=== PATIENT | male | born 1955 | race Caucasian/White ===

== ENCOUNTER 2020-07-10 19:00 | Outpatient (CLI) | payer MEDICARE, OTHER | END 2020-07-10 19:01 | disposition home or self-care (01) | LOC: SLEEPLAB 19:00 | PROVIDERS: ATTEND Family Medicine | DX: G47.33 Obstructive sleep apnea (adult) (pediatric) (principal); R53.83 Other fatigue; R06.83 Snoring; I10 Essential (primary) hypertension | CPT/HCPCS: 95810 ==

== ENCOUNTER 2020-07-20 19:00 | Outpatient (CLI) | payer MEDICARE, OTHER | END 2020-07-20 19:01 | disposition home or self-care (01) | LOC: SLEEPLAB 19:00 | PROVIDERS: ATTEND Family Medicine | DX: G47.33 Obstructive sleep apnea (adult) (pediatric) (principal); R53.83 Other fatigue; R06.83 Snoring | CPT/HCPCS: 95811 ==

== ENCOUNTER 2021-09-02 14:39 | Outpatient (CLI) | payer MEDICARE, OTHER ==
[2021-09-02 15:59] LABS: #Basophils 0.1 10x3/uL (0.0-0.2); #Eosinphils 0.1 10x3/uL (0.0-0.5); #Monocytes 1.1 10x3/uL (0.0-1.1); #Neutrophils 9.7 10x3/uL (1.5-8.4); %Basophils 0.6 % (0.0-2.0); %Eosinophils 1.1 % (0.0-6.0); %Lymphocytes 11.9 % (18.0-47.0); %Monocytes 8.5 % (0.0-10.0); %Neutrophils 77.3 % (40.0-75.0); Hemoglobin 14.5 g/dL (13.5-17.5); Mean Corpuscular HGB CONC 33.7 g/dL (32.0-36.0); Mean Corpuscular Volume 92.1 fl (81.2-95.1); Mean Platelet Volume 9.5 fl (7.4-10.4); Platelet Count 239 10x3/uL (150-450); RBC Distribution Width 13.2 % (11.5-14.5); Red Blood Cell (RBC) Count 4.67 10x6/uL (4.32-5.72); White Blood Cell (WBC) Count 12.6 10x3/uL (3.5-10.5)
[2021-09-02 16:37] LABS: Anion Gap 16 mmol/L (10-20); BUN (Urea Nitrogen) 17 mg/dL (8.4-25.7); Calc. Creatinine Clearance 0 mL/min (70-130); Calcium 9.7 mg/dL (7.8-10.44); Carbon Dioxide 24 mmol/L (23-31); Chloride 101 mmol/L (98-107); Glucose 95 mg/dL (80-115); Potassium 3.7 mmol/L (3.5-5.1); Sodium 137 mmol/L (136-145)
[2021-09-02 23:17] LABS: SARS-CoV-2 PCR by NAA Not Detected (NotDetected)
== END 2021-09-02 14:40 | disposition home or self-care (01) ==
LOC: LABBT 14:39
PROVIDERS: ATTEND Surgery
DX: Z01.818 Encounter for other preprocedural examination (principal); Z20.822 Contact with and (suspected) exposure to COVID-19
CPT/HCPCS: 80048; 85025; 93005; U0003; U0005; 93010

== ENCOUNTER 2021-09-03 09:05 | Day surgery (SDC) | payer MEDICARE, OTHER ==
[2021-09-02 15:39] VITALS: BMI 27.8
[2021-09-03] MEDS ORDERED: Bupivacaine 0.25% 10 ML VIAL ONE (10:03)
[2021-09-03] MEDS ORDERED: Lidocaine 1% w/Epinephrine 1:100K 20 ML VIAL ONE (10:03)
[2021-09-03] MEDS ORDERED: Fentanyl 250 MCG/5 ML VIAL ONE (10:24)
[2021-09-03] MEDS ORDERED: Midazolam HCl 2 mg/2 ml Vial ONE (10:24)
[2021-09-03] MEDS ORDERED: ceFAZolin (BATCH) 2 GM/100 ML BAG ONE (10:28)
[2021-09-03] MEDS ORDERED: Glycopyrrolate 0.2 MG/ML 5 ML SYRINGE ONE (10:38)
[2021-09-03] MEDS ORDERED: Lidocaine 1% PF 5 ML VIAL ONE (10:38)
[2021-09-03] MEDS ORDERED: Rocuronium Bromide 10 MG/ML (10ML VIAL) ONE (10:38)
[2021-09-03] MEDS ORDERED: Dexamethasone 20 MG/5 ML VIAL ONE (10:38)
[2021-09-03] MEDS ORDERED: Ondansetron PF 4 MG/2 ML Vial ONE (10:38)
[2021-09-03] MEDS ORDERED: PROPOFOL 200 MG/20 ML VIAL ONE (10:38)
[2021-09-03] MEDS ORDERED: ePHEDrine 50 MG/ML VIAL ONE (10:38)
== END 2021-09-03 14:45 | disposition home or self-care (01) ==
LOC: SDC 09:05
PROVIDERS: ATTEND Surgery
PROC: 0YUA4JZ Supplement Bilateral Inguinal Region with Synthetic Substitute, Percutaneous Endoscopic Approach (ICD-10-PCS; principal; 2021-09-03)
PROC: 8E0W4CZ Robotic Assisted Procedure of Trunk Region, Percutaneous Endoscopic Approach (ICD-10-PCS; 2021-09-03)
DX: K40.30 Unilateral inguinal hernia, with obstruction, without gangrene, not specified as recurrent (principal); K40.90 Unilateral inguinal hernia, without obstruction or gangrene, not specified as recurrent; E89.0 Postprocedural hypothyroidism; I10 Essential (primary) hypertension; E78.5 Hyperlipidemia, unspecified; G47.30 Sleep apnea, unspecified; F17.210 Nicotine dependence, cigarettes, uncomplicated; M10.9 Gout, unspecified; N52.9 Male erectile dysfunction, unspecified; Z79.82 Long term (current) use of aspirin; Z79.899 Other long term (current) drug therapy
CPT/HCPCS: 49650; C1781; J0690; J1100; J2250; J2405; J2704; J3010; J3490; S0020

== ENCOUNTER 2021-10-26 12:33 | Outpatient (CLI) | payer MEDICARE, OTHER ==
[~2021-10-26 12:33] MED LIST: ISOVUE-370 76%-LOCM 1 ML ONE
== END 2021-10-26 12:34 | disposition home or self-care (01) ==
LOC: BICCT 12:33
PROVIDERS: ATTEND Surgery
DX: R10.30 Lower abdominal pain, unspecified (principal); K76.9 Liver disease, unspecified; K65.1 Peritoneal abscess
CPT/HCPCS: 74177

== ENCOUNTER 2021-10-26 16:55 | Outpatient (CLI) | payer MEDICARE, OTHER ==
[2021-10-26 23:38] LABS: SARS-CoV-2 NAA Rapid Test Not Detected (NotDetected)
== END 2021-10-26 16:56 | disposition home or self-care (01) ==
LOC: LABBT 16:55
PROVIDERS: ATTEND Surgery
DX: L02.214 Cutaneous abscess of groin (principal); Z20.822 Contact with and (suspected) exposure to COVID-19
CPT/HCPCS: 74177; U0002; Q9966

== ENCOUNTER 2021-10-27 11:39 | Inpatient (IN) | payer MEDICARE, OTHER ==
[2021-10-27] MEDS ORDERED: fentaNYL Citrate/PF 100 MCG/2 ML SYRINGE ONE (14:08)
[2021-10-27] MEDS ORDERED: Bupivacaine 0.25% HCL 30 ML VIAL ONE (14:09)
[2021-10-27] MEDS ORDERED: Lidocaine 1% w/Epinephrine 1:100K 20 ML VIAL ONE (14:09)
[2021-10-27] MEDS ORDERED: CEFAZOLIN 2 GM VIAL ONE (14:14)
[2021-10-27] MEDS ORDERED: Sodium Chloride 0.9% 100 ML ONE (14:14)
[2021-10-27] MEDS ORDERED: SUGAMMADEX SODIUM 200 MG/2 ML VIAL ONE (14:38)
[2021-10-27] MEDS ORDERED: Meperidine HCl/PF 25 MG/ML VIAL ONE (15:10)
[2021-10-27] MEDS ORDERED: Fentanyl 100 MCG/2 ML VIAL ONE ×2 (15:13→15:44)
[2021-10-27] MEDS ORDERED: Dextrose 50% Abboject 50 ML SYRINGE SLOW IVP PRN (16:49)
[2021-10-27] MEDS ORDERED: Promethazine HCl 25 MG/ML VIAL IM PRN (16:49)
[2021-10-27] MEDS ORDERED: Dextrose 5% in Water 1,000 ML IV PRN (16:49)
[2021-10-27] MEDS ORDERED: Indomethacin 75 mg SR Capsule PO PRN (16:49)
[2021-10-27] MEDS ORDERED: Ondansetron PF 4 MG/2 ML Vial IVP PRN (16:49)
[2021-10-27] MEDS ORDERED: HYDROcodone/Acetaminophen 7.5/325 mg Tablet PO PRN ×2 (16:49)
[2021-10-27] MEDS ORDERED: traMADol HCl 50 MG TAB PO PRN (16:49)
[2021-10-27] MEDS ORDERED: Morphine 4 MG/ML VIAL SLOW IVP PRN (16:49)
[2021-10-27] MEDS ORDERED: Colchicine 0.6 MG TAB PO PRN (16:49)
[2021-10-27] MEDS ORDERED: hydrALAZINE 20 MG/ML VIAL SLOW IVP PRN (16:49)
[2021-10-27 16:51] VITALS: BMI 26.2
[2021-10-27] MEDS: traMADol HCl 50 MG TAB PO PRN ×2 (17:15→22:15)
[2021-10-27] MEDS: Amoxicillin/Potassium Clav 875 MG TAB PO SCH (20:20)
[2021-10-27] MEDS: Famotidine 20 MG TAB PO SCH (20:20)
[2021-10-27] MEDS: Famotidine/PF 20 mg/2ml Vial SLOW IVP SCH (20:21)
[2021-10-27] MEDS: D5 1/2 NS w/20 mEq KCL 1,000 ML IV SCH (20:24)
[2021-10-28] MEDS: traMADol HCl 50 MG TAB PO PRN (04:09)
[2021-10-28] MEDS: Lisinopril 20 MG TAB PO SCH (08:38)
[2021-10-28] MEDS: Calcium Carbonate 600 MG TAB PO SCH (08:38)
[2021-10-28] MEDS: Cholecalciferol 1,000 UNITS (25 MCG) TAB PO SCH (08:38)
[2021-10-28] MEDS: Amoxicillin/Potassium Clav 875 MG TAB PO SCH ×2 (08:39→20:26)
[2021-10-28] MEDS: Allopurinol 100 MG TAB PO SCH (08:39)
[2021-10-28] MEDS: Ascorbic Acid 500 mg Chewable Tablet PO SCH (08:39)
[2021-10-28] MEDS: Cyanocobalamin (Vitamin B-12) 1,000 MCG TAB PO SCH (08:39)
[2021-10-28] MEDS: Famotidine 20 MG TAB PO SCH ×2 (08:39→20:26)
[2021-10-28] MEDS: Famotidine/PF 20 mg/2ml Vial SLOW IVP SCH ×2 (08:40→20:27)
[2021-10-28] MEDS: Chlorthalidone 25 MG TAB PO SCH (08:53)
[2021-10-28] MEDS ORDERED: Docusate 100 MG CAP PO PRN (14:40)
[2021-10-28] MEDS ORDERED: Polyethylene Glycol 3350 17 GM Packet PO PRN (14:40)
[2021-10-29] MEDS: D5 1/2 NS w/20 mEq KCL 1,000 ML IV SCH (04:58)
[2021-10-29 08:01] VITALS: TEMP 97.9
[2021-10-29] MEDS ORDERED: Sulfameth/Trimethoprim DS 800-160mg TAB PO SCH (09:00)
[2021-10-29] MEDS: Chlorthalidone 25 MG TAB PO SCH (09:40)
[2021-10-29] MEDS: Ascorbic Acid 500 mg Chewable Tablet PO SCH (09:40)
[2021-10-29] MEDS: Famotidine 20 MG TAB PO SCH (09:41)
[2021-10-29] MEDS: Cyanocobalamin (Vitamin B-12) 1,000 MCG TAB PO SCH (09:41)
[2021-10-29] MEDS: Lisinopril 20 MG TAB PO SCH (09:41)
[2021-10-29] MEDS: Allopurinol 100 MG TAB PO SCH (09:41)
[2021-10-29] MEDS: Calcium Carbonate 600 MG TAB PO SCH (09:41)
[2021-10-29] MEDS: Famotidine/PF 20 mg/2ml Vial SLOW IVP SCH (09:42)
[2021-10-29] MEDS: Cholecalciferol 1,000 UNITS (25 MCG) TAB PO SCH (09:42)
[2021-10-29 09:48] VITALS: BP 140/83
== END 2021-10-29 17:55 | disposition home or self-care (01) | DRG 863 ==
LOC: SDC 11:39 → T4-B 16:35
PROVIDERS: ADMIT Surgery; ATTEND Surgery
PROC: 0J9C0ZZ Drainage of Pelvic Region Subcutaneous Tissue and Fascia, Open Approach (ICD-10-PCS; principal; 2021-10-27)
DX: T81.40XA Infection following a procedure, unspecified, initial encounter (principal); L02.214 Cutaneous abscess of groin; Z20.822 Contact with and (suspected) exposure to COVID-19; I10 Essential (primary) hypertension; E78.5 Hyperlipidemia, unspecified; M10.9 Gout, unspecified; F17.210 Nicotine dependence, cigarettes, uncomplicated; Y83.8 Other surgical procedures as the cause of abnormal reaction of the patient, or of later complication, without mention of misadventure at the time of the procedure; Z88.1 Allergy status to other antibiotic agents; Z79.899 Other long term (current) drug therapy
CPT/HCPCS: 36416; 74177; J0690; J2175; J3010; J3480; J3490; Q9966; S0020; U0002

== ENCOUNTER 2022-01-26 09:56 | Outpatient (CLI) | payer MEDICARE, OTHER ==
[~2022-01-26 09:56] MED LIST changes: -ISOVUE-370 76%-LOCM 1 ML ONE; +Iopamidol 370 76% 100 ML VIAL ONE
== END 2022-01-26 09:57 | disposition home or self-care (01) ==
LOC: BICCT 09:56
PROVIDERS: ATTEND Surgery
DX: T81.49XA Infection following a procedure, other surgical site, initial encounter (principal); L02.214 Cutaneous abscess of groin
CPT/HCPCS: 72193; 82565

== ENCOUNTER 2022-05-13 10:36 | Outpatient (CLI) | payer MEDICARE, OTHER | END 2022-05-13 10:37 | disposition home or self-care (01) | LOC: BICCT 10:36 | PROVIDERS: ATTEND Surgery | DX: T81.49XA Infection following a procedure, other surgical site, initial encounter (principal) | CPT/HCPCS: 72193; 82565 ==

== ENCOUNTER 2022-06-02 09:31 | Day surgery (SDC) | payer MEDICARE, OTHER ==
[2022-05-31 14:59] VITALS: BMI 27.5
[2022-06-02] MEDS ORDERED: Lidocaine 1% MPF 2 ML VIAL ONE (10:47)
[2022-06-02] MEDS ORDERED: Sodium Chloride 0.9% 100 ML ONE (10:47)
[2022-06-02] MEDS ORDERED: CEFAZOLIN 2 GM VIAL ONE (10:47)
[2022-06-02] MEDS ORDERED: Bupivacaine/Epinephrine 0.25% 30 ML VIAL ONE (12:02)
[2022-06-02] MEDS ORDERED: Midazolam HCl 2 mg/2 ml Vial ONE (12:51)
[2022-06-02] MEDS ORDERED: Rocuronium Bromide 10 MG/ML (10ML VIAL) ONE (13:08)
[2022-06-02] MEDS ORDERED: Dexamethasone 20 MG/5 ML VIAL ONE (13:08)
[2022-06-02] MEDS ORDERED: Lidocaine 1% PF 5 ML VIAL ONE (13:08)
[2022-06-02] MEDS ORDERED: Ondansetron PF 4 MG/2 ML Vial ONE (13:08)
[2022-06-02] MEDS ORDERED: ePHEDrine 50 MG/ML VIAL ONE (13:08)
[2022-06-02] MEDS ORDERED: PROPOFOL 200 MG/20 ML VIAL ONE (13:08)
[2022-06-02] MEDS ORDERED: Fentanyl 250 MCG/5 ML VIAL ONE (13:43)
[2022-06-02] MEDS ORDERED: SUGAMMADEX SODIUM 200 MG/2 ML VIAL ONE (15:59)
[2022-06-02] MEDS ORDERED: fentaNYL PF 100 MCG/2 ML SYRINGE ONE (16:40)
[2022-06-02] MEDS ORDERED: traMADol HCl 50 MG TAB ONE (18:08)
== END 2022-06-02 18:39 | disposition home or self-care (01) ==
LOC: SDC 09:31
PROVIDERS: ATTEND Surgery
PROC: 0WPF4JZ Removal of Synthetic Substitute from Abdominal Wall, Percutaneous Endoscopic Approach (ICD-10-PCS; principal; 2022-06-02)
PROC: 0WQF4ZZ Repair Abdominal Wall, Percutaneous Endoscopic Approach (ICD-10-PCS; 2022-06-02)
PROC: 8E0W4CZ Robotic Assisted Procedure of Trunk Region, Percutaneous Endoscopic Approach (ICD-10-PCS; 2022-06-02)
DX: K43.2 Incisional hernia without obstruction or gangrene (principal); T85.79XA Infection and inflammatory reaction due to other internal prosthetic devices, implants and grafts, initial encounter; K66.0 Peritoneal adhesions (postprocedural) (postinfection); I10 Essential (primary) hypertension; E78.5 Hyperlipidemia, unspecified; N52.9 Male erectile dysfunction, unspecified; M10.9 Gout, unspecified; G47.33 Obstructive sleep apnea (adult) (pediatric); E89.2 Postprocedural hypoparathyroidism; F17.210 Nicotine dependence, cigarettes, uncomplicated; Z79.2 Long term (current) use of antibiotics; Z79.82 Long term (current) use of aspirin; Z79.899 Other long term (current) drug therapy; Z88.1 Allergy status to other antibiotic agents; Y81.3 Surgical instruments, materials and general- and plastic-surgery devices (including sutures) associated with adverse incidents
CPT/HCPCS: J1100; J2250; J2405; J2704; J3010; J3490

== ENCOUNTER 2022-08-01 07:42 | Outpatient (CLI) | payer MEDICARE, OTHER ==
[2022-08-01] MEDS ORDERED: Iopamidol 370 76% 100 ML VIAL ONE (09:20)
== END 2022-08-01 07:43 | disposition home or self-care (01) ==
LOC: BICCT 07:42
PROVIDERS: ATTEND Surgery
DX: K63.2 Fistula of intestine (principal)
CPT/HCPCS: 74177; 82565

== ENCOUNTER 2022-08-23 08:30 | Inpatient (IN) | payer MEDICARE, OTHER ==
[2022-08-26 15:48] VITALS: BMI 27.8
[2022-08-30] MEDS ORDERED: Bupivacaine PF 0.5% 30 ML VIAL ONE (08:31)
[2022-08-30] MEDS ORDERED: Midazolam HCl 2 mg/2 ml Vial ONE (08:31)
[2022-08-30] MEDS ORDERED: fentaNYL 50 mcg/mL 1 mL Vial ONE ×5 (08:31→17:25)
[2022-08-30] MEDS ORDERED: Dexamethasone 20 MG/5 ML VIAL ONE (10:22)
[2022-08-30] MEDS ORDERED: ePHEDrine Sulfate 50 MG/10 ML VIAL ONE (10:22)
[2022-08-30] MEDS ORDERED: Rocuronium Bromide 10 MG/ML (10ML VIAL) ONE (10:22)
[2022-08-30] MEDS ORDERED: Ketorolac Tromethamine 30 MG/ML VIAL ONE (10:22)
[2022-08-30] MEDS ORDERED: PROPOFOL 200 MG/20 ML VIAL ONE (10:22)
[2022-08-30] MEDS ORDERED: Bupivacaine HCl 0.5%/Epinephrine 1:200,000/PF 30 ml Vial ONE (10:22)
[2022-08-30] MEDS ORDERED: Lidocaine 1% PF 5 ML VIAL ONE (10:22)
[2022-08-30] MEDS ORDERED: Fentanyl 250 MCG/5 ML VIAL ONE (11:20)
[2022-08-30] MEDS ORDERED: Sodium Chloride 0.9% 100 ML ONE (11:27)
[2022-08-30] MEDS ORDERED: cefOXitin 2 GM VIAL ONE ×2 (11:27→13:58)
[2022-08-30] MEDS ORDERED: Rocuronium Bromide 50 MG/5 ML VIAL ONE (13:42)
[2022-08-30] MEDS ORDERED: SUGAMMADEX SODIUM 200 MG/2 ML VIAL ONE (14:32)
[2022-08-30] MEDS ORDERED: HYDROmorphone 2 MG/ML VIAL SLOW IVP PRN (15:40)
[2022-08-30] MEDS ORDERED: Ondansetron HCl/PF 4 MG/2 ML Vial IVP PRN ×2 (15:40→17:08)
[2022-08-30] MEDS ORDERED: hydrALAZINE 20 MG/ML VIAL SLOW IVP PRN (15:45)
[2022-08-30] MEDS ORDERED: Fentanyl 100 MCG/2 ML VIAL SLOW IVP PRN (15:45)
[2022-08-30] MEDS ORDERED: Promethazine HCl 25 MG/ML VIAL IM PRN (15:45)
[2022-08-30] MEDS ORDERED: Ondansetron PF 4 MG/2 ML Vial IVP PRN (15:45)
[2022-08-30] MEDS ORDERED: Ipratropium/Albuterol 3 ML NEB NEB PRN (15:45)
[2022-08-30] MEDS ORDERED: HYDROmorphone 0.5 MG/0.5 ML SYRINGE ONE (16:37)
[2022-08-30] MEDS ORDERED: hydrALAZINE 20 MG/ML VIAL ONE (17:25)
[2022-08-30] MEDS ORDERED: cefOXitin 2 GM in Sodium Chloride 0.9% 100 ML IVPB SCH (18:00)
[2022-08-30] MEDS: D5 1/2 NS w/20 mEq KCL 1,000 ML IV SCH (20:47)
[2022-08-30] MEDS: fentaNYL 50 mcg/mL 1 mL Vial SLOW IVP PRN (20:47)
[2022-08-30] MEDS: Famotidine 20 MG TAB PO SCH (20:56)
[2022-08-30] MEDS: Famotidine/PF 20 mg/2ml Vial SLOW IVP SCH (22:37)
[2022-08-30] MEDS: cefOXitin 2 GM in Sodium Chloride 0.9% 100 ML IVPB SCH (22:37)
[2022-08-31] MEDS: D5 1/2 NS w/20 mEq KCL 1,000 ML IV SCH ×3 (01:28→20:47)
[2022-08-31] MEDS: fentaNYL 50 mcg/mL 1 mL Vial SLOW IVP PRN ×3 (02:55→22:51)
[2022-08-31] MEDS ORDERED: traMADol HCl 50 MG TAB PO PRN (02:57)
[2022-08-31] MEDS: cefOXitin 2 GM in Sodium Chloride 0.9% 100 ML IVPB SCH (05:21)
[2022-08-31 05:50] LABS: #Lymphocytes 1.1 thou/uL (1.20-3.40); #Neutrophils 6.6 thou/uL (1.40-6.50); %Basophils 0.2 % (0.0-1.0); %Eosinophils 0.2 % (0.0-10.0); %Lymphocytes 12.7 % (21.0-51.0); %Monocytes 11.5 % (0.0-10.0); %Neutrophils 75.3 % (42.0-75.0); Hemoglobin 11.9 g/dL (14.0-18.0); Mean Corpuscular HGB CONC 33.2 g/dL (32.0-36.0); Mean Corpuscular Hemoglobin 31.3 pg (27.0-31.0); Mean Corpuscular Volume 94.3 fl (78.0-98.0); Mean Platelet Volume 6.8 fL (7.4-10.4); Platelet Count 280 10x3/uL (130-400); Red Blood Cell (RBC) Count 3.79 mill/uL (4.70-6.10); White Blood Cell (WBC) Count 8.7 10x3/uL (4.8-10.8)
[2022-08-31 06:11] LABS: Anion Gap 12 mmol/L (10-20); BUN (Urea Nitrogen) 21 mg/dL (8.4-25.7); Calc. Creatinine Clearance 73 mL/min (70-130); Calcium 8.9 mg/dL (7.8-10.44); Carbon Dioxide 21 mmol/L (23-31); Chloride 107 mmol/L (98-107); Estimated GFR 63; Glucose 116 mg/dL (80-115); Sodium 136 mmol/L (136-145)
[2022-08-31] MEDS: Lisinopril 20 MG TAB PO SCH (08:35)
[2022-08-31] MEDS: Famotidine 20 MG TAB PO SCH ×2 (08:35→20:45)
[2022-08-31] MEDS: Famotidine/PF 20 mg/2ml Vial SLOW IVP SCH ×2 (08:36→20:47)
[2022-08-31] MEDS: Chlorthalidone 25 MG TAB PO SCH (09:52)
[2022-08-31] MEDS ORDERED: Lidocaine 4% Topical Sol 50 ML BOT TOP SCH (12:00)
[2022-08-31] MEDS: traMADol HCl 50 MG TAB PO PRN (14:42)
[2022-08-31] MEDS ORDERED: HYDROcodone/Acetaminophen 7.5/325 mg Tablet PO PRN (15:33)
[2022-09-01] MEDS: traMADol HCl 50 MG TAB PO PRN ×3 (03:39→21:27)
[2022-09-01] MEDS: Acetaminophen 325 MG TAB PO PRN ×3 (06:12→21:26)
[2022-09-01] MEDS: Famotidine/PF 20 mg/2ml Vial SLOW IVP SCH ×2 (09:13→19:42)
[2022-09-01] MEDS: Famotidine 20 MG TAB PO SCH ×2 (09:13→19:43)
[2022-09-01] MEDS: Lisinopril 20 MG TAB PO SCH (09:13)
[2022-09-01] MEDS: Chlorthalidone 25 MG TAB PO SCH (09:15)
[2022-09-02] MEDS: traMADol HCl 50 MG TAB PO PRN ×2 (05:15→11:19)
[2022-09-02] MEDS: Acetaminophen 325 MG TAB PO PRN (05:15)
[2022-09-02 08:12] VITALS: TEMP 97.9
[2022-09-02] MEDS ORDERED: Milk Of Magnesia 30 ML UDCUP PO ONE (08:38)
[2022-09-02] MEDS: Chlorthalidone 25 MG TAB PO SCH (09:19)
[2022-09-02] MEDS: Famotidine 20 MG TAB PO SCH (09:20)
[2022-09-02 09:21] VITALS: BP 157/92
[2022-09-02] MEDS: Lisinopril 20 MG TAB PO SCH (09:21)
[2022-09-02] MEDS: Famotidine/PF 20 mg/2ml Vial SLOW IVP SCH (11:29)
== END 2022-09-02 12:00 | disposition home or self-care (01) | DRG 330 ==
LOC: SURG A 08-30 08:02
PROVIDERS: ADMIT Surgery; ATTEND Surgery
PROC: 0DBG4ZZ Excision of Left Large Intestine, Percutaneous Endoscopic Approach (ICD-10-PCS; principal; 2022-08-30)
DX: K94.09 Other complications of colostomy (principal); K57.32 Diverticulitis of large intestine without perforation or abscess without bleeding; K63.2 Fistula of intestine; I10 Essential (primary) hypertension; E78.5 Hyperlipidemia, unspecified; Y83.8 Other surgical procedures as the cause of abnormal reaction of the patient, or of later complication, without mention of misadventure at the time of the procedure; Z88.1 Allergy status to other antibiotic agents; Z79.899 Other long term (current) drug therapy
CPT/HCPCS: 36415; 36416; 80048; 85025; 88307; 97139; C1713; C1889; J0360; J0694; J1100; J1170; J1650; J1885; J2250; J2704; J3010; J3480; J3490; S0020; S0028

== ENCOUNTER 2022-08-23 09:05 | Outpatient (CLI) | payer MEDICARE, OTHER ==
[2022-08-23 10:14] LABS: #Basophils 0.1 10x3/uL (0.0-0.2); #Eosinphils 0.2 10x3/uL (0.0-0.5); #Monocytes 0.7 10x3/uL (0.0-1.1); #Neutrophils 4.3 10x3/uL (1.5-8.4); %Basophils 1.3 % (0.0-2.0); %Eosinophils 2.5 % (0.0-6.0); %Lymphocytes 22.5 % (18.0-47.0); %Monocytes 10.2 % (0.0-10.0); %Neutrophils 63.2 % (40.0-75.0); Hemoglobin 13.8 g/dL (13.5-17.5); Mean Corpuscular HGB CONC 32.9 g/dL (32.0-36.0); Mean Corpuscular Hemoglobin 29.7 pg (27.0-33.0); Mean Corpuscular Volume 90.3 fl (81.2-95.1); Mean Platelet Volume 9.1 fl (7.4-10.4); Platelet Count 346 10x3/uL (150-450); RBC Distribution Width 14.1 % (11.5-14.5); Red Blood Cell (RBC) Count 4.65 10x6/uL (4.32-5.72); White Blood Cell (WBC) Count 6.8 10x3/uL (3.5-10.5)
[2022-08-23 10:49] LABS: Anion Gap 13 mmol/L (10-20); BUN (Urea Nitrogen) 21 mg/dL (8.4-25.7); Calc. Creatinine Clearance 0 mL/min (70-130); Calcium 10.1 mg/dL (7.8-10.44); Carbon Dioxide 24 mmol/L (23-31); Chloride 104 mmol/L (98-107); Estimated GFR 78; Glucose 92 mg/dL (80-115); Potassium 4.2 mmol/L (3.5-5.1); Sodium 137 mmol/L (136-145)
[2022-08-23 16:02] LABS: Hemoglobin A1c 5.1 % (4.0-6.0)
== END 2022-08-23 09:06 | disposition home or self-care (01) ==
LOC: LABBT 09:05
PROVIDERS: ATTEND Surgery
DX: Z01.818 Encounter for other preprocedural examination (principal); K57.92 Diverticulitis of intestine, part unspecified, without perforation or abscess without bleeding
CPT/HCPCS: 80048; 83036; 85025; 93005; 93010

== ENCOUNTER 2022-09-04 19:03 | Inpatient (IN) | payer MEDICARE, OTHER ==
[2022-09-04] MEDS ORDERED: Ondansetron PF 4 MG/2 ML Vial ONE (19:29)
[2022-09-04 19:42] LABS: Hemoglobin 13.7 g/dL (14.0-18.0); Mean Corpuscular Hemoglobin 32.8 pg (27.0-31.0); Mean Corpuscular Volume 93.5 fl (78.0-98.0); Mean Platelet Volume 6.7 fL (7.4-10.4); Platelet Count 432 10x3/uL (130-400); RBC Distribution Width 13.1 % (11.5-14.5); Red Blood Cell (RBC) Count 4.18 mill/uL (4.70-6.10); White Blood Cell (WBC) Count 11.9 10x3/uL (4.8-10.8)
[2022-09-04 20:01] LABS: Albumin 3.9 g/dL (3.4-4.8)
[2022-09-04 20:02] LABS: Chloride 97 mmol/L (98-107); Potassium 4.1 mmol/L (3.5-5.1); Sodium 138 mmol/L (136-145)
[2022-09-04 20:03] LABS: Calcium 10.6 mg/dL (7.8-10.44); Glucose 116 mg/dL (80-115)
[2022-09-04 20:04] LABS: Globulin 3.4 g/dL (2.4-3.5); Protein, Total 7.3 g/dL (5.8-8.1)
[2022-09-04 20:05] LABS: Bilirubin, Total 0.6 mg/dL (0.2-1.2); Carbon Dioxide 26 mmol/L (23-31)
[2022-09-04 20:06] LABS: Alkaline Phosphatase 62 U/L (40-110)
[2022-09-04 20:07] LABS: Calc. Creatinine Clearance 0 mL/min (70-130); Estimated GFR 66
[2022-09-04 20:08] LABS: BUN (Urea Nitrogen) 31 mg/dL (8.4-25.7)
[2022-09-04 20:09] LABS: ALT (SGPT) 17 U/L (8-55); AST (SGOT) 19 U/L (5-34); Lipase 22 U/L (8-78)
[2022-09-04 20:10] LABS: Anion Gap 20 mmol/L (10-20)
[2022-09-04 20:12] LABS: Band 5 % (5-11); Lymphocytes 7 % (21-51); MDiff Complete? YES; Monocytes 4 % (0-10); Neutrophil 84 % (42-75); Platelet Morphology Comment Appears Increased; RBC Morphology Normal
[2022-09-04] MEDS ORDERED: Sodium Chloride 0.9% 1,000 ML IV SCH (21:30)
[2022-09-04 21:36] VITALS: BMI 27.8
[2022-09-04] MEDS ORDERED: Promethazine HCl 25 MG/ML VIAL IM PRN (22:09)
[2022-09-04] MEDS ORDERED: Dextrose 5% in Water 1,000 ML IV PRN (22:09)
[2022-09-04] MEDS ORDERED: hydrALAZINE 20 MG/ML VIAL SLOW IVP PRN (22:09)
[2022-09-04] MEDS ORDERED: Acetaminophen 325 MG TAB PO PRN (22:09)
[2022-09-04] MEDS ORDERED: Dextrose 50% Abboject 50 ML SYRINGE SLOW IVP PRN (22:09)
[2022-09-04] MEDS ORDERED: Fentanyl 100 MCG/2 ML VIAL SLOW IVP PRN (22:09)
[2022-09-04] MEDS ORDERED: Ipratropium/Albuterol 3 ML NEB NEB PRN (22:09)
[2022-09-04] MEDS ORDERED: traMADol HCl 50 MG TAB PO PRN ×2 (22:09)
[2022-09-04] MEDS: Ondansetron PF 4 MG/2 ML Vial IVP PRN (22:25)
[2022-09-04] MEDS: Sodium Chloride 0.9% 1,000 ML IV SCH (22:27)
[2022-09-04] MEDS ORDERED: Famotidine/PF 20 mg/2ml Vial SLOW IVP SCH (22:30)
[2022-09-04] MEDS ORDERED: Famotidine 20 MG TAB PO SCH (22:30)
[2022-09-05] MEDS: Sodium Chloride 0.9% 1,000 ML IV SCH ×3 (06:03→20:57)
[2022-09-05 06:19] LABS: #Eosinphils 0.1 thou/uL (0.0-0.7); #Lymphocytes 1.5 thou/uL (1.20-3.40); #Monocytes 1.1 thou/uL (0.11-0.59); %Basophils 0.3 % (0.0-1.0); %Eosinophils 0.7 % (0.0-10.0); %Lymphocytes 15.7 % (21.0-51.0); %Monocytes 11.3 % (0.0-10.0); Hemoglobin 12.3 g/dL (14.0-18.0); Mean Corpuscular HGB CONC 34.5 g/dL (32.0-36.0); Mean Corpuscular Hemoglobin 32.1 pg (27.0-31.0); Mean Platelet Volume 6.7 fL (7.4-10.4); Platelet Count 381 10x3/uL (130-400); RBC Distribution Width 13.1 % (11.5-14.5); Red Blood Cell (RBC) Count 3.82 mill/uL (4.70-6.10); White Blood Cell (WBC) Count 9.7 10x3/uL (4.8-10.8)
[2022-09-05 06:45] LABS: Anion Gap 15 mmol/L (10-20); BUN (Urea Nitrogen) 29 mg/dL (8.4-25.7); Calc. Creatinine Clearance 90 mL/min (70-130); Calcium 9.9 mg/dL (7.8-10.44); Carbon Dioxide 28 mmol/L (23-31); Chloride 100 mmol/L (98-107); Estimated GFR 79; Glucose 101 mg/dL (80-115); Potassium 3.4 mmol/L (3.5-5.1); Sodium 140 mmol/L (136-145)
[2022-09-05] MEDS: Ondansetron PF 4 MG/2 ML Vial IVP PRN (07:18)
[2022-09-05] MEDS: Famotidine/PF 20 mg/2ml Vial SLOW IVP SCH ×2 (09:30→20:58)
[2022-09-05] MEDS: Lisinopril 20 MG TAB PO SCH (09:30)
[2022-09-05] MEDS: fentaNYL 50 mcg/mL 1 mL Vial SLOW IVP PRN ×2 (13:40→18:37)
[2022-09-05] MEDS: Famotidine 20 MG TAB PO SCH ×2 (16:09→20:58)
[2022-09-05] MEDS: Ketorolac Tromethamine 30 MG/ML VIAL IVP PRN (18:38)
[2022-09-06] MEDS: fentaNYL 50 mcg/mL 1 mL Vial SLOW IVP PRN ×5 (00:05→18:41)
[2022-09-06] MEDS: Ketorolac Tromethamine 30 MG/ML VIAL IVP PRN ×2 (00:06→21:05)
[2022-09-06] MEDS: Sodium Chloride 0.9% 1,000 ML IV SCH ×3 (05:06→21:05)
[2022-09-06] MEDS ORDERED: Lidocaine 4% Topical Sol 50 ML BOT TOP SCH (09:00)
[2022-09-06] MEDS: Lisinopril 20 MG TAB PO SCH (10:45)
[2022-09-06] MEDS: Famotidine/PF 20 mg/2ml Vial SLOW IVP SCH ×2 (10:45→21:06)
[2022-09-06] MEDS: Famotidine 20 MG TAB PO SCH ×2 (10:46→22:15)
[2022-09-06] MEDS ORDERED: Allopurinol 100 MG TAB PO SCH (11:00)
[2022-09-06] MEDS: Chlorthalidone 25 MG TAB PO SCH ×2 (11:29→11:31)
[2022-09-07] MEDS: Ketorolac Tromethamine 30 MG/ML VIAL IVP PRN ×3 (03:17→22:24)
[2022-09-07] MEDS: Sodium Chloride 0.9% 1,000 ML IV SCH ×2 (03:23→11:27)
[2022-09-07] MEDS: Lisinopril 20 MG TAB PO SCH (08:27)
[2022-09-07] MEDS: Allopurinol 100 MG TAB PO SCH (08:28)
[2022-09-07] MEDS: Chlorthalidone 25 MG TAB PO SCH (08:28)
[2022-09-07] MEDS: Famotidine/PF 20 mg/2ml Vial SLOW IVP SCH ×2 (08:28→21:27)
[2022-09-07] MEDS: Famotidine 20 MG TAB PO SCH ×2 (08:28→20:30)
[2022-09-07] MEDS: fentaNYL 50 mcg/mL 1 mL Vial SLOW IVP PRN (08:32)
[2022-09-07] MEDS ORDERED: Chlorthalidone 25 MG TAB PO SCH (09:00)
[2022-09-07] MEDS: chlorproMAZINE HCl 25 MG TAB PO PRN (13:10)
[2022-09-08] MEDS: Sodium Chloride 0.9% 1,000 ML IV SCH (01:55)
[2022-09-08 06:06] VITALS: TEMP 98.1
[2022-09-08 08:28] VITALS: BP 139/83
[2022-09-08] MEDS: Chlorthalidone 25 MG TAB PO SCH (08:32)
[2022-09-08] MEDS: Lisinopril 20 MG TAB PO SCH (08:33)
[2022-09-08] MEDS: Famotidine/PF 20 mg/2ml Vial SLOW IVP SCH (08:33)
[2022-09-08] MEDS: Famotidine 20 MG TAB PO SCH (08:33)
[2022-09-08] MEDS: Allopurinol 100 MG TAB PO SCH (08:33)
[2022-09-08] MEDS: chlorproMAZINE HCl 25 MG TAB PO PRN (09:24)
== END 2022-09-08 13:00 | disposition home or self-care (01) | DRG 389 ==
LOC: ERS 19:03 → SURG A 19:48 → OBSVTOIN 09-05 17:04
PROVIDERS: ADMIT Surgery; ATTEND Surgery
PROC: 0D9670Z Drainage of Stomach with Drainage Device, Via Natural or Artificial Opening (ICD-10-PCS; principal; 2022-09-05)
DX: K56.7 Ileus, unspecified (principal); K63.2 Fistula of intestine; Z88.8 Allergy status to other drugs, medicaments and biological substances; Z90.49 Acquired absence of other specified parts of digestive tract
CPT/HCPCS: 36415; 74018; 80048; 80053; 83605; 83690; 84484; 85025; 96372; 96374; 96375; 96376; 97139; G0378; J1650; J1885; J2405; J3010; J7050; Q0161; S0028

== ENCOUNTER 2022-10-14 11:09 | Inpatient (IN) | payer MEDICARE, OTHER ==
[2022-10-14] MEDS ORDERED: Sodium Chloride 0.9% 100 ML ONE ×2 (12:32→18:33)
[2022-10-14] MEDS ORDERED: Piperacillin/Tazobactam 3.375 GM VIAL ONE ×2 (12:32→18:33)
[2022-10-14 12:38] LABS: #Monocytes 0.9 thou/uL (0.11-0.59); #Neutrophils 8.8 thou/uL (1.40-6.50); %Basophils 0.4 % (0.0-1.0); %Lymphocytes 3.3 % (21.0-51.0); %Monocytes 8.5 % (0.0-10.0); %Neutrophils 87.3 % (42.0-75.0); Hemoglobin 11.7 g/dL (14.0-18.0); Mean Corpuscular HGB CONC 32.9 g/dL (32.0-36.0); Mean Corpuscular Hemoglobin 29.3 pg (27.0-31.0); Mean Corpuscular Volume 89.2 fl (78.0-98.0); Mean Platelet Volume 8.5 fL (7.4-10.4); Platelet Count 322 10x3/uL (130-400); RBC Distribution Width 15.6 % (11.5-14.5); Red Blood Cell (RBC) Count 3.99 mill/uL (4.70-6.10); White Blood Cell (WBC) Count 10.1 10x3/uL (4.8-10.8)
[2022-10-14 12:59] LABS: Anion Gap 12 mmol/L (10-20); BUN (Urea Nitrogen) 16 mg/dL (8.4-25.7); Calc. Creatinine Clearance 0 mL/min (70-130); Calcium 9.8 mg/dL (7.8-10.44); Carbon Dioxide 22 mmol/L (23-31); Chloride 103 mmol/L (98-107); Estimated GFR 65; Glucose 110 mg/dL (80-115); Potassium 3.7 mmol/L (3.5-5.1); Sodium 133 mmol/L (136-145)
[2022-10-14] MEDS ORDERED: Ketorolac Tromethamine 30 MG/ML VIAL IVP PRN ×2 (13:34→17:21)
[2022-10-14] MEDS ORDERED: Ondansetron HCl/PF 4 MG/2 ML Vial IVP PRN (13:34)
[2022-10-14] MEDS ORDERED: PACU-Morphine 4MG/ML VIAL SLOW IVP PRN (13:34)
[2022-10-14] MEDS ORDERED: Promethazine HCl 25 MG/ML VIAL IM PRN ×2 (13:34→17:21)
[2022-10-14] MEDS ORDERED: Vancomycin 1 GM/200 ML (FROZEN) BAG ONE (14:36)
[2022-10-14] MEDS ORDERED: fentaNYL PF 100 MCG/2 ML SYRINGE ONE ×2 (15:01→16:44)
[2022-10-14] MEDS ORDERED: Rocuronium Bromide 10 MG/ML (10ML VIAL) ONE (15:34)
[2022-10-14] MEDS ORDERED: NEOSTIGMINE 3 MG/3 ML SYR 3 MG/3 ML SYRINGE ONE (15:34)
[2022-10-14] MEDS ORDERED: PROPOFOL 200 MG/20 ML VIAL ONE (15:34)
[2022-10-14] MEDS ORDERED: Lidocaine 1% PF 5 ML VIAL ONE (15:34)
[2022-10-14] MEDS ORDERED: Ondansetron PF 4 MG/2 ML Vial ONE (15:34)
[2022-10-14] MEDS ORDERED: GLYCOPYRROLATE/PF 0.2 MG/ML VIAL ONE (15:34)
[2022-10-14] MEDS ORDERED: Ketorolac Tromethamine 30 MG/ML VIAL ONE (15:34)
[2022-10-14] MEDS ORDERED: Bupivacaine/Epinephrine 0.25% 30 ML VIAL ONE (15:40)
[2022-10-14] MEDS ORDERED: Bupivacaine HCl 0.5%/Epinephrine 1:200,000/PF 30 ml Vial ONE (15:40)
[2022-10-14] MEDS ORDERED: Dextrose 5% in Water 1,000 ML IV PRN (17:21)
[2022-10-14] MEDS ORDERED: Glucagon 1 MG/ML KIT IM PRN (17:21)
[2022-10-14] MEDS ORDERED: hydrALAZINE 20 MG/ML VIAL SLOW IVP PRN (17:21)
[2022-10-14] MEDS ORDERED: HYDROcodone/Acetaminophen 10/325 mg Tablet PO PRN (17:21)
[2022-10-14] MEDS ORDERED: Ondansetron PF 4 MG/2 ML Vial IVP PRN (17:21)
[2022-10-14] MEDS ORDERED: Colchicine 0.6 MG TAB PO PRN (17:21)
[2022-10-14] MEDS ORDERED: traMADol HCl 50 MG TAB PO PRN (17:21)
[2022-10-14] MEDS ORDERED: Dextrose 50% Abboject 50 ML SYRINGE SLOW IVP PRN (17:21)
[2022-10-14] MEDS ORDERED: Ipratropium/Albuterol 3 ML NEB NEB PRN (17:21)
[2022-10-14] MEDS ORDERED: fentaNYL 50 mcg/mL 1 mL Vial SLOW IVP PRN (17:33)
[2022-10-14] MEDS ORDERED: cloNIDine 0.1 MG TAB PO PRN (18:00)
[2022-10-14] MEDS: Sodium Chloride 0.9% 1,000 ML IV SCH (18:20)
[2022-10-14] MEDS: Piperacillin/Tazobactam 3.375 GM in Sodium Chloride 0.9% 100 ML IVPB SCH (18:35)
[2022-10-14] MEDS: Famotidine 20 MG TAB PO SCH (20:22)
[2022-10-14] MEDS: Famotidine/PF 20 mg/2ml Vial SLOW IVP SCH (20:23)
[2022-10-14 20:39] VITALS: BMI 26.9
[2022-10-15] MEDS: Piperacillin/Tazobactam 3.375 GM in Sodium Chloride 0.9% 100 ML IVPB SCH ×3 (02:11→17:38)
[2022-10-15 06:09] LABS: #Neutrophils 6.2 thou/uL (1.40-6.50); %Basophils 0.4 % (0.0-1.0); %Eosinophils 0.2 % (0.0-10.0); %Lymphocytes 12.8 % (21.0-51.0); %Monocytes 11.8 % (0.0-10.0); %Neutrophils 74.1 % (42.0-75.0); Hemoglobin 9.6 g/dL (14.0-18.0); Mean Corpuscular HGB CONC 31.7 g/dL (32.0-36.0); Mean Corpuscular Hemoglobin 29.1 pg (27.0-31.0); Mean Corpuscular Volume 91.8 fl (78.0-98.0); Mean Platelet Volume 8.7 fL (7.4-10.4); Platelet Count 270 10x3/uL (130-400); RBC Distribution Width 15.4 % (11.5-14.5); White Blood Cell (WBC) Count 8.4 10x3/uL (4.8-10.8)
[2022-10-15 06:30] LABS: Anion Gap 11 mmol/L (10-20); BUN (Urea Nitrogen) 21 mg/dL (8.4-25.7); Calc. Creatinine Clearance 64 mL/min (70-130); Calcium 8.4 mg/dL (7.8-10.44); Carbon Dioxide 21 mmol/L (23-31); Chloride 106 mmol/L (98-107); Estimated GFR 57; Glucose 126 mg/dL (80-115); Potassium 4.1 mmol/L (3.5-5.1); Sodium 134 mmol/L (136-145)
[2022-10-15] MEDS: traMADol HCl 50 MG TAB PO PRN ×3 (06:30→20:32)
[2022-10-15] MEDS: Lisinopril 20 MG TAB PO SCH (08:25)
[2022-10-15] MEDS: Allopurinol 100 MG TAB PO SCH (08:25)
[2022-10-15] MEDS: Famotidine 20 MG TAB PO SCH ×2 (08:25→20:32)
[2022-10-15] MEDS: Chlorthalidone 25 MG TAB PO SCH (08:25)
[2022-10-15] MEDS: Famotidine/PF 20 mg/2ml Vial SLOW IVP SCH ×2 (08:27→20:28)
[2022-10-15] MEDS: Sodium Chloride 0.9% 1,000 ML IV SCH (08:27)
[2022-10-15] MEDS: Acetaminophen 325 MG TAB PO PRN ×2 (10:50→17:39)
[2022-10-16] MEDS: Piperacillin/Tazobactam 3.375 GM in Sodium Chloride 0.9% 100 ML IVPB SCH ×3 (01:32→17:39)
[2022-10-16] MEDS: Acetaminophen 325 MG TAB PO PRN ×4 (03:05→19:50)
[2022-10-16] MEDS: Lisinopril 20 MG TAB PO SCH (08:13)
[2022-10-16] MEDS: Allopurinol 100 MG TAB PO SCH (08:13)
[2022-10-16] MEDS: Senokot 8.6 MG TAB PO SCH ×2 (08:13→19:52)
[2022-10-16] MEDS: Famotidine 20 MG TAB PO SCH ×2 (08:13→19:50)
[2022-10-16] MEDS: Famotidine/PF 20 mg/2ml Vial SLOW IVP SCH ×2 (08:14→19:52)
[2022-10-16] MEDS: Chlorthalidone 25 MG TAB PO SCH (08:50)
[2022-10-16] MEDS: traMADol HCl 50 MG TAB PO PRN (21:29)
[2022-10-17] MEDS: Piperacillin/Tazobactam 3.375 GM in Sodium Chloride 0.9% 100 ML IVPB SCH ×3 (02:30→19:59)
[2022-10-17] MEDS: Acetaminophen 325 MG TAB PO PRN (03:53)
[2022-10-17] MEDS: Senokot 8.6 MG TAB PO SCH (09:00)
[2022-10-17] MEDS: Allopurinol 100 MG TAB PO SCH (09:00)
[2022-10-17] MEDS: Lisinopril 20 MG TAB PO SCH (09:00)
[2022-10-17] MEDS: Famotidine 20 MG TAB PO SCH (09:00)
[2022-10-17] MEDS: Chlorthalidone 25 MG TAB PO SCH (10:03)
[2022-10-17] MEDS: Famotidine/PF 20 mg/2ml Vial SLOW IVP SCH (10:04)
[2022-10-17 16:09] VITALS: BP 155/81; TEMP 97.9
== END 2022-10-17 19:34 | disposition home or self-care (01) | DRG 581 ==
LOC: SDC 11:09 → SJJU 17:18
PROVIDERS: ADMIT Surgery; ATTEND Surgery
PROC: 0Y9 Anatomical Regions, Lower Extremities, Drainage (ICD-10-PCS; principal; 2022-10-14)
PROC: 0JPW0JZ Removal of Synthetic Substitute from Lower Extremity Subcutaneous Tissue and Fascia, Open Approach (ICD-10-PCS; 2022-10-14)
DX: L02.214 Cutaneous abscess of groin (principal); I10 Essential (primary) hypertension; M10.9 Gout, unspecified; I73.9 Peripheral vascular disease, unspecified; Z88.1 Allergy status to other antibiotic agents; S31.109D Unspecified open wound of abdominal wall, unspecified quadrant without penetration into peritoneal cavity, subsequent encounter; S81.801D Unspecified open wound, right lower leg, subsequent encounter
CPT/HCPCS: 36415; 74177; 80048; 85025; 93923; 97139; 97607; J1885; J2405; J2543; J2704; J3370-JW; J3490; J7050; Q9967

== ENCOUNTER 2022-10-21 16:08 | Emergency (ER) | payer MEDICARE, OTHER | END 2022-10-21 19:20 | disposition home or self-care (01) | LOC: ERS 16:08 | DX: T85.79XA Infection and inflammatory reaction due to other internal prosthetic devices, implants and grafts, initial encounter (principal); I10 Essential (primary) hypertension; F17.200 Nicotine dependence, unspecified, uncomplicated | CPT/HCPCS: 87070; 87077; 87186; 87205; 99284 ==

== ENCOUNTER 2023-02-17 14:00 | Inpatient (IN) | payer MEDICARE, OTHER ==
[2023-02-17 14:42] VITALS: BMI 27.8
[2023-02-21] MEDS ORDERED: fentaNYL 50 mcg/mL 1 mL Vial ONE ×3 (10:33→15:46)
[2023-02-21] MEDS ORDERED: Midazolam HCl 2 mg/2 ml Vial ONE (10:33)
[2023-02-21] MEDS ORDERED: Bupivacaine PF 0.5% 30 ML VIAL ONE (10:34)
[2023-02-21] MEDS ORDERED: fentaNYL PF 100 MCG/2 ML SYRINGE ONE ×2 (12:31)
[2023-02-21] MEDS ORDERED: cefOXitin 2 GM VIAL ONE (12:39)
[2023-02-21] MEDS ORDERED: Sodium Chloride 0.9% 100 ML ONE (12:39)
[2023-02-21] MEDS ORDERED: Ondansetron PF 4 MG/2 ML Vial ONE (12:58)
[2023-02-21] MEDS ORDERED: PHENYLEPHRINE-NS 100 MCG/ML 10 ML SYRINGE ONE (12:58)
[2023-02-21] MEDS ORDERED: Rocuronium Bromide 10 MG/ML (10ML VIAL) ONE (12:58)
[2023-02-21] MEDS ORDERED: NEOSTIGMINE 3 MG/3 ML SYR 3 MG/3 ML SYRINGE ONE (12:58)
[2023-02-21] MEDS ORDERED: Glycopyrrolate 0.2 MG/ML 5 ML SYRINGE ONE (12:58)
[2023-02-21] MEDS ORDERED: Lidocaine 1% PF 5 ML VIAL ONE (12:58)
[2023-02-21] MEDS ORDERED: PROPOFOL 200 MG/20 ML VIAL ONE (12:58)
[2023-02-21] MEDS ORDERED: Bupivacaine HCl 0.5%/Epinephrine 1:200,000/PF 30 ml Vial ONE (12:58)
[2023-02-21] MEDS ORDERED: Dexamethasone 20 MG/5 ML VIAL ONE (12:58)
[2023-02-21] MEDS ORDERED: ePHEDrine Sulfate 50 MG/10 ML VIAL ONE (12:58)
[2023-02-21] MEDS ORDERED: Ondansetron HCl/PF 4 MG/2 ML Vial IVP PRN (15:09)
[2023-02-21] MEDS ORDERED: Promethazine HCl 25 MG/ML VIAL IM PRN ×2 (15:09→15:52)
[2023-02-21] MEDS ORDERED: hydrALAZINE 20 MG/ML VIAL SLOW IVP PRN (15:52)
[2023-02-21] MEDS ORDERED: Ondansetron PF 4 MG/2 ML Vial IVP PRN ×2 (15:52→16:15)
[2023-02-21] MEDS ORDERED: Ipratropium/Albuterol 3 ML NEB NEB PRN (15:52)
[2023-02-21] MEDS ORDERED: HYDROmorphone 0.5 MG/0.5 ML SYRINGE ONE ×2 (16:06→17:37)
[2023-02-21] MEDS ORDERED: diphenhydrAMINE 50 MG/ML VIAL IM/IV PRN (16:15)
[2023-02-21] MEDS ORDERED: Naloxone HCl 0.4 mg/ml Vial IV PRN (16:15)
[2023-02-21] MEDS ORDERED: diphenhydrAMINE 25 MG CAP PO PRN (16:15)
[2023-02-21] MEDS ORDERED: Morphine Sulfate 100 MG in Dextrose 5% in Water 98 ML IV SCH (16:15)
[2023-02-21] MEDS ORDERED: hydrALAZINE 20 MG/ML VIAL ONE ×2 (16:33→18:08)
[2023-02-21] MEDS: Ketorolac Tromethamine 30 MG/ML VIAL IVP SCH (20:32)
[2023-02-21] MEDS: cefOXitin 2 GM in Sodium Chloride 0.9% 100 ML IVPB SCH (20:49)
[2023-02-21] MEDS: Famotidine/PF 20 mg/2ml Vial SLOW IVP SCH (20:50)
[2023-02-21] MEDS: Famotidine 20 MG TAB PO SCH (20:51)
[2023-02-21] MEDS: D5 1/2 NS w/20 mEq KCL 1,000 ML IV SCH (20:51)
[2023-02-22] MEDS: Ketorolac Tromethamine 30 MG/ML VIAL IVP SCH ×5 (00:49→23:07)
[2023-02-22] MEDS: cefOXitin 2 GM in Sodium Chloride 0.9% 100 ML IVPB SCH (03:28)
[2023-02-22] MEDS: D5 1/2 NS w/20 mEq KCL 1,000 ML IV SCH ×4 (05:52→23:07)
[2023-02-22 06:05] LABS: #Monocytes 0.8 thou/uL (0.11-0.59); %Basophils 0.3 % (0.0-1.0); %Lymphocytes 12.6 % (21.0-51.0); %Monocytes 10.2 % (0.0-10.0); %Neutrophils 76.6 % (42.0-75.0); Hematocrit 39.6 % (42.0-52.0); Hemoglobin 12.9 g/dL (14.0-18.0); Mean Corpuscular HGB CONC 32.6 g/dL (32.0-36.0); Mean Corpuscular Hemoglobin 29.3 pg (27.0-31.0); Mean Platelet Volume 9.2 fL (7.4-10.4); Platelet Count 250 10x3/uL (130-400); RBC Distribution Width 14.5 % (11.5-14.5); White Blood Cell (WBC) Count 7.9 10x3/uL (4.8-10.8)
[2023-02-22 07:14] LABS: Anion Gap 13 mmol/L (10-20); BUN (Urea Nitrogen) 16 mg/dL (8.4-25.7); Calc. Creatinine Clearance 77 mL/min (70-130); Calcium 8.7 mg/dL (7.8-10.44); Carbon Dioxide 22 mmol/L (23-31); Chloride 103 mmol/L (98-107); Estimated GFR 67; Glucose 111 mg/dL (80-115); Potassium 3.8 mmol/L (3.5-5.1); Sodium 134 mmol/L (136-145)
[2023-02-22] MEDS: Famotidine/PF 20 mg/2ml Vial SLOW IVP SCH ×2 (09:14→20:22)
[2023-02-22] MEDS: Lisinopril 20 MG TAB PO SCH (09:17)
[2023-02-22] MEDS: Allopurinol 100 MG TAB PO SCH (09:17)
[2023-02-22] MEDS: Famotidine 20 MG TAB PO SCH ×2 (09:17→20:33)
[2023-02-23] MEDS: Ketorolac Tromethamine 30 MG/ML VIAL IVP SCH ×2 (05:03→12:57)
[2023-02-23] MEDS: Famotidine 20 MG TAB PO SCH ×2 (09:11→21:49)
[2023-02-23] MEDS: Lisinopril 20 MG TAB PO SCH (09:11)
[2023-02-23] MEDS: Allopurinol 100 MG TAB PO SCH (09:11)
[2023-02-23] MEDS: Famotidine/PF 20 mg/2ml Vial SLOW IVP SCH ×2 (09:15→21:48)
[2023-02-23] MEDS ORDERED: traMADol HCl 50 MG TAB PO PRN ×2 (09:47)
[2023-02-23] MEDS: Acetaminophen 500 MG TAB PO SCH ×2 (12:55→17:51)
[2023-02-24] MEDS: Acetaminophen 500 MG TAB PO SCH ×3 (00:39→11:32)
[2023-02-24] MEDS: Lisinopril 20 MG TAB PO SCH (08:30)
[2023-02-24] MEDS: Famotidine 20 MG TAB PO SCH (08:31)
[2023-02-24] MEDS: Allopurinol 100 MG TAB PO SCH (08:32)
[2023-02-24] MEDS: Famotidine/PF 20 mg/2ml Vial SLOW IVP SCH (08:33)
[2023-02-24] MEDS ORDERED: FLU VACC QS2023(65UP)/MF59C/PF 60 MCG/0.5 ML SYRINGE IM ONE (09:00)
[2023-02-24 11:40] VITALS: TEMP 98.2
[2023-02-24 16:51] VITALS: BP 164/93
== END 2023-02-24 17:52 | disposition home or self-care (01) | DRG 331 ==
LOC: SURG A 02-21 09:09 → SURG B 02-21 18:38 → SURG A 02-21 18:40
PROVIDERS: ADMIT Surgery; ATTEND Surgery
PROC: 0DSP0ZZ Reposition Rectum, Open Approach (ICD-10-PCS; principal; 2023-02-21)
PROC: 0D1B0Z4 Bypass Ileum to Cutaneous, Open Approach (ICD-10-PCS; 2023-02-21)
DX: Z43.2 Encounter for attention to ileostomy (principal); Z88.1 Allergy status to other antibiotic agents; Z88.8 Allergy status to other drugs, medicaments and biological substances
CPT/HCPCS: 36415; 36416; 80048; 85025; 88304; 97139; A4314; A4649; C1776; C1889; J0360; J0694; J1100; J1170; J1650; J1885; J2250; J2405; J2704; J3010; J3480; J3490; S0020; S0028

== ENCOUNTER 2023-02-17 14:04 | Outpatient (CLI) | payer MEDICARE, OTHER ==
[2023-02-17 15:08] LABS: #Basophils 0.1 10x3/uL (0.0-0.2); #Eosinphils 0.2 10x3/uL (0.0-0.5); #Monocytes 0.7 10x3/uL (0.0-1.1); #Neutrophils 3.7 10x3/uL (1.5-8.4); %Basophils 1.2 % (0.0-2.0); %Eosinophils 2.5 % (0.0-6.0); %Lymphocytes 30.2 % (18.0-47.0); %Monocytes 10.8 % (0.0-10.0); Hematocrit 39.6 % (38.8-50.0); Mean Corpuscular HGB CONC 32.8 g/dL (32.0-36.0); Mean Corpuscular Hemoglobin 28.9 pg (27.0-33.0); Mean Platelet Volume 9.1 fl (7.4-10.4); Platelet Count 286 10x3/uL (150-450); RBC Distribution Width 15.1 % (11.5-14.5); White Blood Cell (WBC) Count 6.8 10x3/uL (3.5-10.5)
[2023-02-17 15:49] LABS: Anion Gap 14 mmol/L (10-20); BUN (Urea Nitrogen) 24 mg/dL (8.4-25.7); Calc. Creatinine Clearance 0 mL/min (70-130); Calcium 9.5 mg/dL (7.8-10.44); Carbon Dioxide 24 mmol/L (23-31); Chloride 107 mmol/L (98-107); Estimated GFR 81; Glucose 94 mg/dL (80-115); Potassium 3.8 mmol/L (3.5-5.1); Sodium 141 mmol/L (136-145)
== END 2023-02-17 14:05 | disposition home or self-care (01) ==
LOC: LABBT 14:04
PROVIDERS: ATTEND Surgery
DX: Z01.818 Encounter for other preprocedural examination (principal); K94.03 Colostomy malfunction
CPT/HCPCS: 80048; 85025; 93005; 93010

== ENCOUNTER 2023-04-12 08:51 | Outpatient (CLI) | payer MEDICARE, OTHER ==
[2023-04-12] MEDS ORDERED: MD-Gastroview 120 ML BOT ONE (10:22)
== END 2023-04-12 08:52 | disposition home or self-care (01) ==
LOC: RAD 08:51
PROVIDERS: ATTEND Surgery
DX: Z48.815 Encounter for surgical aftercare following surgery on the digestive system (principal); Z93.2 Ileostomy status; K63.89 Other specified diseases of intestine
CPT/HCPCS: 74280; Q9963

== ENCOUNTER 2023-04-14 09:30 | Inpatient (IN) | payer MEDICARE, OTHER ==
[2023-04-14 10:04] VITALS: BMI 27.4
[2023-04-19] MEDS ORDERED: Rocuronium Bromide 10 MG/ML (10ML VIAL) ONE ×3 (11:46→13:15)
[2023-04-19] MEDS ORDERED: Lidocaine 1% PF 5 ML VIAL ONE ×3 (11:46→13:15)
[2023-04-19] MEDS ORDERED: fentaNYL PF 100 MCG/2 ML SYRINGE ONE ×2 (11:46→12:12)
[2023-04-19] MEDS ORDERED: PROPOFOL 20 ML ONE ×2 (11:46→12:12)
[2023-04-19] MEDS ORDERED: Ondansetron PF 4 MG/2 ML Vial ONE ×2 (12:12→13:15)
[2023-04-19] MEDS ORDERED: Dexamethasone 4 mg/ml Vial ONE (12:12)
[2023-04-19] MEDS ORDERED: Ketorolac Tromethamine 30 MG/ML VIAL ONE ×2 (12:12→13:15)
[2023-04-19] MEDS ORDERED: PHENYLEPHRINE-NS 100 MCG/ML 10 ML SYRINGE ONE (12:12)
[2023-04-19] MEDS ORDERED: cefOXitin 2 GM VIAL ONE (12:53)
[2023-04-19] MEDS ORDERED: Sodium Chloride 0.9% 100 ML ONE (12:54)
[2023-04-19] MEDS ORDERED: Metoclopramide HCl 10 MG/2 ML VIAL ONE (13:15)
[2023-04-19] MEDS ORDERED: Dexamethasone 20 MG/5 ML VIAL ONE (13:15)
[2023-04-19] MEDS ORDERED: PROPOFOL 200 MG/20 ML VIAL ONE (13:15)
[2023-04-19] MEDS ORDERED: SUGAMMADEX SODIUM 200 MG/2 ML VIAL ONE (13:57)
[2023-04-19] MEDS ORDERED: HYDROmorphone 2 MG/ML VIAL ONE (14:00)
[2023-04-19] MEDS ORDERED: Morphine 4 MG/ML VIAL SLOW IVP PRN (14:20)
[2023-04-19] MEDS ORDERED: Glucagon 1 MG/ML KIT IM PRN (14:20)
[2023-04-19] MEDS ORDERED: Ondansetron PF 4 MG/2 ML Vial IVP PRN (14:20)
[2023-04-19] MEDS ORDERED: Dextrose 50% Abboject 50 ML SYRINGE SLOW IVP PRN (14:20)
[2023-04-19] MEDS ORDERED: Dextrose 5% in Water 1,000 ML IV PRN (14:20)
[2023-04-19] MEDS ORDERED: Ipratropium/Albuterol 3 ML NEB NEB PRN (14:20)
[2023-04-19] MEDS ORDERED: Promethazine HCl 25 MG/ML VIAL IM PRN (14:20)
[2023-04-19] MEDS ORDERED: HYDROcodone/Acetaminophen 7.5/325 mg Tablet PO PRN (14:20)
[2023-04-19] MEDS ORDERED: fentaNYL 50 mcg/mL 1 mL Vial ONE (14:36)
[2023-04-19] MEDS ORDERED: hydrALAZINE 20 MG/ML VIAL ONE (14:37)
[2023-04-19] MEDS: traMADol HCl 50 MG TAB PO PRN ×2 (17:16→23:31)
[2023-04-19] MEDS: D5 1/2 NS w/20 mEq KCL 1,000 ML IV SCH (17:16)
[2023-04-19] MEDS: Ketorolac Tromethamine 30 MG/ML VIAL IVP PRN (21:01)
[2023-04-19] MEDS: Famotidine/PF 20 mg/2ml Vial SLOW IVP SCH (21:01)
[2023-04-19] MEDS: Famotidine 20 MG TAB PO SCH (21:02)
[2023-04-19] MEDS: hydrALAZINE 20 MG/ML VIAL SLOW IVP PRN (23:32)
[2023-04-20] MEDS: D5 1/2 NS w/20 mEq KCL 1,000 ML IV SCH ×3 (01:20→16:15)
[2023-04-20] MEDS: Ketorolac Tromethamine 30 MG/ML VIAL IVP PRN (04:42)
[2023-04-20] MEDS: hydrALAZINE 20 MG/ML VIAL SLOW IVP PRN (04:49)
[2023-04-20] MEDS: traMADol HCl 50 MG TAB PO PRN ×2 (05:16→17:47)
[2023-04-20 05:28] LABS: #Monocytes 0.8 thou/uL (0.11-0.59); #Neutrophils 8.7 thou/uL (1.40-6.50); %Basophils 0.3 % (0.0-1.0); %Eosinophils 0.1 % (0.0-10.0); %Neutrophils 80.2 % (42.0-75.0); Hematocrit 40.5 % (42.0-52.0); Hemoglobin 13.2 g/dL (14.0-18.0); Mean Corpuscular HGB CONC 32.6 g/dL (32.0-36.0); Mean Corpuscular Hemoglobin 28.9 pg (27.0-31.0); Mean Corpuscular Volume 88.8 fl (78.0-98.0); Mean Platelet Volume 9.2 fL (7.4-10.4); Platelet Count 313 10x3/uL (130-400); RBC Distribution Width 14.8 % (11.5-14.5); Red Blood Cell (RBC) Count 4.56 mill/uL (4.70-6.10); White Blood Cell (WBC) Count 10.9 10x3/uL (4.8-10.8)
[2023-04-20 05:56] LABS: Anion Gap 13 mmol/L (10-20); BUN (Urea Nitrogen) 24 mg/dL (8.4-25.7); Calc. Creatinine Clearance 74 mL/min (70-130); Calcium 9.7 mg/dL (7.8-10.44); Carbon Dioxide 20 mmol/L (23-31); Chloride 105 mmol/L (98-107); Estimated GFR 66; Glucose 108 mg/dL (80-115); Potassium 4.2 mmol/L (3.5-5.1); Sodium 134 mmol/L (136-145)
[2023-04-20] MEDS: Lisinopril 20 MG TAB PO SCH (09:32)
[2023-04-20] MEDS: Famotidine 20 MG TAB PO SCH ×2 (09:32→20:53)
[2023-04-20] MEDS: Allopurinol 100 MG TAB PO SCH (09:32)
[2023-04-20] MEDS: Chlorthalidone 25 MG TAB PO SCH (09:32)
[2023-04-20] MEDS: Famotidine/PF 20 mg/2ml Vial SLOW IVP SCH ×2 (09:33→20:55)
[2023-04-21] MEDS: D5 1/2 NS w/20 mEq KCL 1,000 ML IV SCH ×4 (00:36→18:09)
[2023-04-21] MEDS: traMADol HCl 50 MG TAB PO PRN ×2 (00:37→08:36)
[2023-04-21] MEDS: Chlorthalidone 25 MG TAB PO SCH (08:32)
[2023-04-21] MEDS: Allopurinol 100 MG TAB PO SCH (08:32)
[2023-04-21] MEDS: Lisinopril 20 MG TAB PO SCH (08:32)
[2023-04-21] MEDS: Famotidine 20 MG TAB PO SCH ×2 (08:32→20:22)
[2023-04-21] MEDS: Famotidine/PF 20 mg/2ml Vial SLOW IVP SCH ×2 (08:33→20:22)
[2023-04-21] MEDS: Acetaminophen 325 MG TAB PO PRN (16:34)
[2023-04-21] MEDS: Ketorolac Tromethamine 30 MG/ML VIAL IVP PRN (16:35)
[2023-04-22] MEDS: Acetaminophen 325 MG TAB PO PRN ×3 (03:04→18:18)
[2023-04-22] MEDS: Ketorolac Tromethamine 30 MG/ML VIAL IVP PRN ×2 (03:05→10:03)
[2023-04-22] MEDS: D5 1/2 NS w/20 mEq KCL 1,000 ML IV SCH ×2 (05:18→14:52)
[2023-04-22 06:08] LABS: #Eosinphils 0.3 thou/uL (0.0-0.7); #Monocytes 0.5 thou/uL (0.11-0.59); #Neutrophils 5.4 thou/uL (1.40-6.50); %Basophils 0.4 % (0.0-1.0); %Eosinophils 3.4 % (0.0-10.0); %Lymphocytes 16.6 % (21.0-51.0); %Neutrophils 71.9 % (42.0-75.0); Hematocrit 35.9 % (42.0-52.0); Hemoglobin 11.8 g/dL (14.0-18.0); Mean Corpuscular HGB CONC 32.9 g/dL (32.0-36.0); Mean Corpuscular Hemoglobin 29.7 pg (27.0-31.0); Mean Corpuscular Volume 90.4 fl (78.0-98.0); Mean Platelet Volume 9.3 fL (7.4-10.4); Platelet Count 224 10x3/uL (130-400); RBC Distribution Width 14.9 % (11.5-14.5); Red Blood Cell (RBC) Count 3.97 mill/uL (4.70-6.10); White Blood Cell (WBC) Count 7.4 10x3/uL (4.8-10.8)
[2023-04-22 06:42] LABS: Anion Gap 11 mmol/L (10-20); BUN (Urea Nitrogen) 16 mg/dL (8.4-25.7); Calc. Creatinine Clearance 83 mL/min (70-130); Calcium 9.1 mg/dL (7.8-10.44); Carbon Dioxide 21 mmol/L (23-31); Chloride 104 mmol/L (98-107); Estimated GFR 76; Glucose 97 mg/dL (80-115); Potassium 3.5 mmol/L (3.5-5.1); Sodium 132 mmol/L (136-145)
[2023-04-22] MEDS: Famotidine/PF 20 mg/2ml Vial SLOW IVP SCH ×2 (10:02→20:04)
[2023-04-22] MEDS: Chlorthalidone 25 MG TAB PO SCH (10:04)
[2023-04-22] MEDS: Famotidine 20 MG TAB PO SCH ×2 (10:04→20:04)
[2023-04-22] MEDS: Lisinopril 20 MG TAB PO SCH (10:04)
[2023-04-22] MEDS: Allopurinol 100 MG TAB PO SCH (10:07)
[2023-04-22] MEDS ORDERED: Ketorolac Tromethamine 30 MG/ML VIAL ONE (18:33)
[2023-04-22] MEDS ORDERED: Ketorolac Tromethamine 30 MG/ML VIAL IVP PRN (22:59)
[2023-04-23] MEDS: Acetaminophen 325 MG TAB PO PRN ×2 (03:32→09:05)
[2023-04-23] MEDS: D5 1/2 NS w/20 mEq KCL 1,000 ML IV SCH (04:20)
[2023-04-23] MEDS: Allopurinol 100 MG TAB PO SCH (09:00)
[2023-04-23] MEDS: Famotidine 20 MG TAB PO SCH (09:01)
[2023-04-23] MEDS: Lisinopril 20 MG TAB PO SCH (09:01)
[2023-04-23] MEDS: Chlorthalidone 25 MG TAB PO SCH (09:01)
[2023-04-23] MEDS: Famotidine/PF 20 mg/2ml Vial SLOW IVP SCH (09:06)
[2023-04-23 11:32] VITALS: BP 132/72; TEMP 97.6
== END 2023-04-23 11:32 | disposition home or self-care (01) | DRG 331 ==
LOC: SURG A 04-19 10:15 → SJJU 04-19 17:22
PROVIDERS: ADMIT Surgery; ATTEND Surgery
PROC: 0DBB0ZZ Excision of Ileum, Open Approach (ICD-10-PCS; principal; 2023-04-19)
PROC: 3E033XZ Introduction of Vasopressor into Peripheral Vein, Percutaneous Approach (ICD-10-PCS; 2023-04-19)
DX: K94.13 Enterostomy malfunction (principal); I10 Essential (primary) hypertension; E78.5 Hyperlipidemia, unspecified; M25.562 Pain in left knee; M10.9 Gout, unspecified; N20.0 Calculus of kidney; F17.210 Nicotine dependence, cigarettes, uncomplicated; F10.90 Alcohol use, unspecified, uncomplicated; J30.2 Other seasonal allergic rhinitis; Z79.899 Other long term (current) drug therapy; Z98.890 Other specified postprocedural states; Z90.89 Acquired absence of other organs; Z88.8 Allergy status to other drugs, medicaments and biological substances; Z82.49 Family history of ischemic heart disease and other diseases of the circulatory system; Z80.3 Family history of malignant neoplasm of breast
CPT/HCPCS: 36415; 80048; 85025; A4649; J0360; J0694; J1100; J1170; J1650; J1885; J2405; J2704; J2765; J3010; J3480; J3490; S0028

== ENCOUNTER 2023-04-14 09:34 | Outpatient (CLI) | payer MEDICARE, OTHER ==
[2023-04-14 11:42] LABS: Hematocrit 38.7 % (38.8-50.0); Hemoglobin 12.7 g/dL (13.5-17.5); Mean Corpuscular HGB CONC 32.8 g/dL (32.0-36.0); Mean Corpuscular Hemoglobin 29.1 pg (27.0-33.0); Mean Corpuscular Volume 88.8 fl (81.2-95.1); Mean Platelet Volume 9.5 fl (7.4-10.4); Platelet Count 337 10x3/uL (150-450); RBC Distribution Width 14.6 % (11.5-14.5); Red Blood Cell (RBC) Count 4.36 10x6/uL (4.32-5.72)
[2023-04-14 12:16] LABS: Anion Gap 15 mmol/L (10-20); BUN (Urea Nitrogen) 25 mg/dL (8.4-25.7); Calc. Creatinine Clearance 0 mL/min (70-130); Calcium 10.3 mg/dL (7.8-10.44); Carbon Dioxide 24 mmol/L (23-31); Chloride 105 mmol/L (98-107); Estimated GFR 72; Glucose 91 mg/dL (80-115); Potassium 4.8 mmol/L (3.5-5.1); Sodium 139 mmol/L (136-145)
== END 2023-04-14 09:35 | disposition home or self-care (01) ==
LOC: LABBT 09:34
PROVIDERS: ATTEND Surgery
DX: Z01.812 Encounter for preprocedural laboratory examination (principal); K94.13 Enterostomy malfunction
CPT/HCPCS: 80048; 85027

== ENCOUNTER 2024-05-03 07:56 | Outpatient (CLI) | payer MEDICARE, OTHER | END 2024-05-03 07:57 | disposition home or self-care (01) | LOC: BICCT 07:56 | PROVIDERS: ATTEND Surgery | DX: K43.2 Incisional hernia without obstruction or gangrene (principal); I71.40 Abdominal aortic aneurysm, without rupture, unspecified; I70.0 Atherosclerosis of aorta; I31.39 Other pericardial effusion (noninflammatory) | CPT/HCPCS: 36415; 74177; 82565 ==